=== PATIENT | female | born 1975 | race Asian ===

== ENCOUNTER → 2017-06-19 | Outpatient (CLI) | payer OTHER ==
[~2017-06-19] MED LIST: LIDOCAINE 1%, 20ML ONE
== END | disposition home or self-care (01) ==
LOC: RAD 12:36
PROVIDERS: ATTEND Surgery
DX: Z01.818 Encounter for other preprocedural examination (principal); E04.1 Nontoxic single thyroid nodule
CPT/HCPCS: 76942; 88173; J3490

== ENCOUNTER 2017-07-08 06:22 | Inpatient (IN) | payer OTHER ==
[~2017-07-08] VITALS: Ht 157.5 cm; Wt 74.4 kg
[~2017-07-08 06:22] MED LIST changes: -LIDOCAINE 1%, 20ML ONE; +LOSA50TA6 PO
[2017-07-08] MEDS ORDERED: EPINEPHRINE 1 MG/ML, 1ML ONE (06:45)
[2017-07-08] MEDS ORDERED: BUPIVACAINE/PF 0.5% ONE (06:45)
[2017-07-08 06:59] LABS: HCG UR LOT HCG7030192
[2017-07-08] MEDS ORDERED: LACTATED RINGERS 1,000 ML IV SCH (07:02)
[2017-07-08] MEDS ORDERED: BUPIVACAINE/PF 0.5% INFIL ONE (07:02)
[2017-07-08 07:05] LABS: HCG UR OBC PASS
[2017-07-08] MEDS ORDERED: MIDAZOLAM 1 MG/ML, 2ML ONE ×2 (07:06→07:30)
[2017-07-08] MEDS ORDERED: FENTANYL PF 100 MCG/2ML ONE ×3 (07:06→11:17)
[2017-07-08 07:22] VITALS: BP 151/103
[2017-07-08] MEDS ORDERED: ROCURONIUM 10 MG/ML,10ML ONE ×2 (07:30→08:07)
[2017-07-08] MEDS ORDERED: PROTAMINE SULFATE 10 MG/ML, 5ML ONE (07:30)
[2017-07-08] MEDS ORDERED: PROPOFOL 10 MG/ML, 20ML ONE ×2 (07:30→08:07)
[2017-07-08] MEDS ORDERED: CEFAZOLIN 1,000 MG ONE ×2 (07:30→08:07)
[2017-07-08] MEDS ORDERED: FENTANYL PF 250 MCG/5ML ONE (07:30)
[2017-07-08] MEDS ORDERED: ONDANSETRON 2MG/ML, 2ML ONE ×3 (07:30→11:56)
[2017-07-08] MEDS ORDERED: DEXAMETHASONE 4 MG/ML, 1ML ONE ×2 (07:30→08:07)
[2017-07-08] MEDS ORDERED: SUCCINYLCHOLINE 20 MG/ML, 10ML ONE ×2 (07:30→08:07)
[2017-07-08] MEDS ORDERED: EPHEDRINE 50 MG/ML, 1ML ONE (07:30)
[2017-07-08] MEDS ORDERED: FENTANYL PF 100 MCG/2ML IV PRN (08:30)
[2017-07-08] MEDS ORDERED: METOPROLOL 1 MG/ML, 5ML IV PRN (08:30)
[2017-07-08] MEDS ORDERED: OXYcodone 5 MG/5 ML ORAL.SOL UDC PO PRN (08:30)
[2017-07-08] MEDS ORDERED: MEPERIDINE/PF 25MG/0.5ML IVPush PRN (08:30)
[2017-07-08] MEDS ORDERED: ACETAMINOPHEN 325 MG TABLET PO PRN ×2 (08:30→14:30)
[2017-07-08] MEDS ORDERED: PROMETHAZINE 25 MG/ML, 1ML IV PRN (08:30)
[2017-07-08] MEDS ORDERED: MIDAZOLAM 1 MG/ML, 2ML IV PRN (08:30)
[2017-07-08] MEDS ORDERED: ALBUTEROL SULFATE 2.5 MG/3 ML NPPB PRN (08:30)
[2017-07-08] MEDS ORDERED: DIAZEPAM 5 MG/ML, 2ML IVPush PRN (08:30)
[2017-07-08] MEDS ORDERED: LABETALOL 5MG/ML, 20ML IV PRN (08:30)
[2017-07-08] MEDS ORDERED: EPHEDRINE 50 MG/ML, 1ML IVPush PRN (08:30)
[2017-07-08] MEDS ORDERED: HYDROmorphone 1 MG/ML, 1ML IV PRN (08:30)
[2017-07-08] MEDS ORDERED: ONDANSETRON 2MG/ML, 2ML IVPush PRN (08:30)
[2017-07-08] MEDS ORDERED: HYDROcodone/APAP 7.5-325MG/15ML UDC PO PRN (08:30)
[2017-07-08] MEDS ORDERED: hydrALAzine 20 MG/ML, 1ML IV PRN ×2 (08:30→14:30)
[2017-07-08] MEDS ORDERED: HEPARIN 1,000 UNITS/ML, 30ML ONE (09:13)
[2017-07-08] MEDS ORDERED: THROMBIN 5,000 UNIT VIAL TP ONE ×2 (09:26→10:00)
[2017-07-08 09:49] LABS: HEMATOCRIT 34.3 % (34.6-47.8); HEMOGLOBIN 11.8 g/dL (11.7-16.4)
[2017-07-08] MEDS ORDERED: OXYcodone 5 MG/5 ML ORAL.SOL UDC ONE (11:17)
[2017-07-08 12:30] VITALS: BP 132/71
[2017-07-08] MEDS ORDERED: ACETAMINOPHEN 650 MG SUPP PR PRN (14:30)
[2017-07-08] MEDS ORDERED: ONDANSETRON 2MG/ML, 2ML IV PRN (14:30)
[2017-07-08] MEDS ORDERED: HYDROcodone/APAP 5/325 TABLET PO PRN (14:30)
[2017-07-08] MEDS: POTASSIUM CHLORIDE 20 MEQ in SODIUM CHLORIDE 0.9% 1,000 ML IV SCH (15:28)
[2017-07-08] MEDS: CALCIUM/VITAMIN D3 250-125 TABLET PO SCH ×2 (15:28→21:21)
[2017-07-08 20:02] VITALS: BP 111/72
[2017-07-08] MEDS ORDERED: LOSARTAN 50MG TABLET PO SCH (21:00)
[2017-07-09 00:05] VITALS: BP 122/68
[2017-07-09] MEDS: POTASSIUM CHLORIDE 20 MEQ in SODIUM CHLORIDE 0.9% 1,000 ML IV SCH (00:34)
[2017-07-09 03:10] VITALS: BP 104/62
[2017-07-09 05:22] LABS: PTH INTACT INTERPRETATION ** Comment **
[2017-07-09] MEDS ORDERED: LEVOTHYROXINE 125 MCG TABLET PO SCH (06:00)
[2017-07-09 07:04] LABS: PARATHYROID HORMONE INTACT < 2.5 pg/mL (14-72)
[2017-07-09 07:20] VITALS: BP 99/56
[2017-07-09] MEDS: CALCIUM/VITAMIN D3 250-125 TABLET PO SCH (09:33)
[2017-07-09 09:40] VITALS: BP 121/78
[2017-07-09] MEDS ORDERED: HYDR-3240 PO (10:23)
[2017-07-09] MEDS ORDERED: LEVO125T PO (10:24)
[2017-07-09] MEDS ORDERED: CALC-118 PO (10:25)
[2017-07-09] MEDS ORDERED: CALC0.5C2 PO (10:26)
== END 2017-07-09 10:34 | disposition home or self-care (01) | DRG 627 ==
LOC: OUT 06:22 → 4NOR 12:30 → OUT 12:42 → DCLOUNGE 07-09 10:20
PROVIDERS: ADMIT Surgery; ATTEND Surgery
PROC: 07T10ZZ Resection of Right Neck Lymphatic, Open Approach (ICD-10-PCS; 2017-07-08)
PROC: 4A1104G Monitoring of Peripheral Nervous Electrical Activity, Intraoperative, Open Approach (ICD-10-PCS; 2017-07-08)
PROC: 0GTK0ZZ Resection of Thyroid Gland, Open Approach (ICD-10-PCS; principal; 2017-07-08 07:30)
DX: C73 Malignant neoplasm of thyroid gland (principal); E04.2 Nontoxic multinodular goiter; I10 Essential (primary) hypertension; Z79.899 Other long term (current) drug therapy
CPT/HCPCS: 36415; 81025; 82310; 83970; 85014; 85018; 86850; 86900; 86923; 88305; 88307; C1729; J0171; J0690; J1100; J1644; J2250; J2405; J2704; J2720; J3010; J3480; J3490; C1760; J0330; J7030